=== PATIENT | female | born 1965 | race Hispanic/Latino ===

== ENCOUNTER 2022-10-06 07:54 | Inpatient (IN) | payer BC ==
[~2022-10-06] VITALS: Ht 167.6 cm; Wt 72.6 kg
[2022-10-06] VITALS (11 sets, daily range): BP systolic 80–126; BP diastolic 30–66
[2022-10-06] MEDS ORDERED: HEPARIN 5,000 UNIT VIAL ONE (08:25)
[2022-10-06] MEDS ORDERED: ASPIRIN 300 MG SUPPOSITORY PR ONE (08:30)
[2022-10-06 08:31] LABS: ABG OXYGEN SATURATION 98.8 % (95.0-99.0); BASE EXCESS,VENOUS BLOOD GAS -14.4 (-2.0-3.0); HCO3,VENOUS BLOOD GAS 19.6 (21.0-28.0); PCO2,VENOUS BLOOD GAS 91 (32-45); PH,VENOUS BLOOD GAS < 6.960 (7.350-7.450)
[2022-10-06 08:32] LABS: ABG BASE EXCESS -16.3 mmol/L (-2.0-3.0); ABG HCO3 17.1 mmol/L (21.0-28.0); ABG OXYGEN SATURATION 89.2 % (95.0-99.0); ABG PCO2 84 mmHg (32-45)
[2022-10-06 08:37] LABS: BASOPHILS % (AUTO) 0.9 % (0.0-5.0); HEMATOCRIT 39.6 % (36-48); LYMPHOCYTES % (AUTO) 63.1 % (21.0-51.0); MEAN CORPUSCULAR HGB CONC 30.6 g/dL (32.0-36.0); MONOCYTES % (AUTO) 4.3 % (3.0-13.0); NEUTROPHILS % (AUTO) 23.3 % (40.0-77.0); NUCLEATED RED BLOOD CELLS 0.9 % (0.0-0.19); PLATELET COUNT (AUTO) 81 K/uL (130-400); RED BLOOD CELL COUNT(AUTO) 4.66 MIL/uL (4.00-5.50); WHITE BLOOD COUNT (AUTO) 20.3 K/uL (4.8-10.8)
[2022-10-06] MEDS ORDERED: SODIUM BICARB 50MEQ 50ML VIAL 100 ML ONE ×4 (08:37→10:23)
[2022-10-06 08:41] LABS: POTASSIUM 4.6 mmol/L (3.5-5.1)
[2022-10-06] MEDS ORDERED: NITROGLYCERIN 50MG VIAL ONE (08:43)
[2022-10-06] MEDS ORDERED: BIVALIRUDIN 250 MG/VIAL IV ONE (08:43)
[2022-10-06] MEDS ORDERED: ATROPINE 1MG SYG IVP ONE (08:43)
[2022-10-06] MEDS ORDERED: LIDOCAINE HCL 400MG/20ML VIAL ONE (08:43)
[2022-10-06] MEDS ORDERED: HEPARIN 10,000 UNIT/10ML (1,000 UNIT/ML) VIAL ONE (08:43)
[2022-10-06] MEDS ORDERED: IOHEXOL 350 MG/ML 100ML INFUS..BTL IV ONE (08:44)
[2022-10-06 08:47] LABS: MAGNESIUM 2.5 mg/dL (1.80-2.40); TOTAL PROTEIN, SERUM 4.6 g/dL (6.0-8.3)
[2022-10-06] MEDS ORDERED: NACL 0.9% IV SCH (09:00)
[2022-10-06] MEDS ORDERED: EPINEPHRINE IV SCH (09:00)
[2022-10-06] MEDS ORDERED: FENTANYL CITRATE PF 50 MCG/1 ML 2ML VIAL ONE (09:00)
[2022-10-06] MEDS ORDERED: MIDAZOLAM HCL 1 MG/ML 2ML VIAL ONE (09:00)
[2022-10-06] MEDS ORDERED: NOREPINEPHRINE BITARTRATE 1 MG/1 ML ML IV ONE ×3 (09:03→10:54)
[2022-10-06] MEDS ORDERED: PHENYLEPHRINE HCL 10 MG/ML 1ML VIAL IV ONE ×2 (09:15→09:17)
[2022-10-06 09:27] LABS: ABG BASE EXCESS -21.8 mmol/L (-2.0-3.0); ABG HCO3 12.2 mmol/L (21.0-28.0); ABG OXYGEN SATURATION 92.3 % (95.0-99.0); ABG PCO2 73 mmHg (32-45)
[2022-10-06 09:30] LABS: B-TYPE NATRIURETIC PEPTIDE 31 pg/mL (0-100)
[2022-10-06 09:55] LABS: BAND NEUTROPHILS % (MANUAL) 3 % (0-2); BASOPHILS % (MANUAL) 1 % (0-2); EOSINOPHILS % (MANUAL) 1 % (1-6); LYMPHOCYTES % (MANUAL) 74 % (22-44); MAN.DIFF COMMENT-IMPRESSION MANUAL DIFFERENTIAL; MONOCYTES % (MANUAL) 1 % (2-9); PLATELET MORPHOLOGY COMMENT DECREASED; REACTIVE LYMPHOCYTES 2 % (0-0); SEGMENTED NEUTROPHILS % 18 % (40-70)
[2022-10-06 10:13] LABS: ABG BASE EXCESS -17.5 mmol/L (-2.0-3.0); ABG HCO3 13.9 mmol/L (21.0-28.0); ABG PCO2 59 mmHg (32-45)
[2022-10-06] MEDS ORDERED: INSULIN HUMULIN R 100 UNIT/ML 3ML ONE (10:32)
[2022-10-06] MEDS ORDERED: HEPARIN 25,000 UNITS/250ML D5W 250 ML IV ONE (10:45)
[2022-10-06] MEDS ORDERED: KAYEXALATE 15GM/60ML PO PRN (11:00)
[2022-10-06] MEDS ORDERED: SODIUM BICARB 8.4% 50ML SYRING 150 MEQ in DEXTROSE 5%-WATER 1,000 ML IVP SCH (11:00)
[2022-10-06] MEDS ORDERED: CHLORHEXIDINE GLUCONATE 473 ML MOUTHWASH MM SCH (11:00)
[2022-10-06] MEDS ORDERED: HYDRALAZINE 20MG/ML VIAL IV PRN (11:00)
[2022-10-06] MEDS ORDERED: ACETAMINOPHEN 325 MG TAB PO PRN (11:00)
[2022-10-06] MEDS ORDERED: HEPARIN 25,000 UNITS/250ML D5W 250 ML IV SCH (11:00)
[2022-10-06] MEDS ORDERED: LACTULOSE 20 GM/30 ML UDCUP PO PRN (11:00)
[2022-10-06] MEDS ORDERED: NOREPINEPHRIN 4MG/NS 250ML 250 ML IV SCH (11:00)
[2022-10-06] MEDS ORDERED: INSULIN REGULAR, HUMAN 3ML 100 UNIT in 0.9%NACL 100ML 99 ML IV SCH ×2 (11:00)
[2022-10-06] MEDS ORDERED: LABETALOL 20MG SYG IV PRN (11:00)
[2022-10-06] MEDS ORDERED: ONDANSETRON 4MG INJ IVP PRN ×2 (11:00→14:00)
[2022-10-06] MEDS ORDERED: ARTIFICAL TEARS SOL 15 ML OU SCH (11:00)
[2022-10-06] MEDS ORDERED: FENTANYL 2500MCG+NS 250ML 0 ML IV ONE (11:22)
[2022-10-06] MEDS ORDERED: FENTANYL 2500MCG+NS 250ML IV.SOLN IV SCH (11:30)
[2022-10-06] MEDS ORDERED: VASOPRESSIN 40 UNITS in 0.9%NACL 50ML 40 ML IV SCH (11:30)
[2022-10-06] MEDS ORDERED: [UNRECOGNIZED DRUG - OTHER] IV ONE (11:50)
[2022-10-06 11:57] LABS: ABG BASE EXCESS -15.8 mmol/L (-2.0-3.0); ABG OXYGEN SATURATION 86.6 % (95.0-99.0); ABG PCO2 50 mmHg (32-45)
[2022-10-06] MEDS ORDERED: NOREPINEPHRINE 16MG/NS 250ML 250 ML IV SCH (12:00)
[2022-10-06] MEDS ORDERED: SODIUM CHLORIDE 3% FOR INHALATION 4 ML/AMP VIAL.NEB IH SCH (12:00)
[2022-10-06] MEDS ORDERED: NOREPINEPHRINE 16MG/NS 250ML PREMIX IV SCH (12:00)
[2022-10-06] MEDS ORDERED: SODIUM BICARB 8.4% 50ML SYRING 150 MEQ in 0.9%NACL 1000ML 1,000 ML IVP SCH (12:30)
[2022-10-06] MEDS ORDERED: SODIUM BICARB 8.4% 50ML SYRING 0 MEQ in DEXTROSE 5%-WATER 1,000 ML IVP SCH (12:30)
[2022-10-06] MEDS ORDERED: VASOPRESSIN 20 UNITS in 0.9%NACL 100ML 100 ML IV SCH (12:30)
[2022-10-06 12:32] LABS: HEMATOCRIT 31.3 % (36-48); MEAN CORPUSCULAR HEMOGLOBIN 26.5 pg (27.0-33.0); MEAN CORPUSCULAR HGB CONC 30.7 g/dL (32.0-36.0); MEAN CORPUSCULAR VOLUME 86.5 fL (79-99); NUCLEATED RED BLOOD CELLS 0.2 % (0.0-0.19); PLATELET COUNT (AUTO) 56 K/uL (130-400); RED BLOOD CELL COUNT(AUTO) 3.62 MIL/uL (4.00-5.50); RED CELL DISTRIBUTION WIDTH 13.1 % (11.0-15.5); WHITE BLOOD COUNT (AUTO) 23.1 K/uL (4.8-10.8)
[2022-10-06 12:52] LABS: BAND NEUTROPHILS % (MANUAL) 11 % (0-2); EOSINOPHILS % (MANUAL) 1 % (1-6); LYMPHOCYTES % (MANUAL) 38 % (22-44); MAN.DIFF COMMENT-IMPRESSION MANUAL DIFFERENTIAL; MONOCYTES % (MANUAL) 3 % (2-9); SEGMENTED NEUTROPHILS % 47 % (40-70)
[2022-10-06 12:53] LABS: PLATELET MORPHOLOGY COMMENT DECREASED
[2022-10-06] MEDS ORDERED: AMIODARONE 900MG VIAL 540 MG in DEXTROSE 5%-WATER 300 ML IV SCH (13:00)
[2022-10-06] MEDS ORDERED: AMIODARONE 900MG VIAL 150 MG in DEXTROSE 5%-WATER 100 ML IV SCH (13:00)
[2022-10-06] MEDS ORDERED: AMIODARONE 900MG VIAL 360 MG in DEXTROSE 5%-WATER 200 ML IV SCH (13:00)
[2022-10-06 13:18] LABS: POTASSIUM 3.7 mmol/L (3.5-5.1)
[2022-10-06 13:19] LABS: CREATININE 1.3 mg/dL (0.5-1.5); TOTAL PROTEIN, SERUM 3.7 g/dL (6.0-8.3)
[2022-10-06 13:20] LABS: ALBUMIN 1.4 g/dL (3.5-5.0)
[2022-10-06] MEDS ORDERED: NOREPINEPHRIN 4MG/NS 250ML 250 ML IV ONE (13:27)
[2022-10-06 13:36] LABS: MAGNESIUM 2.6 mg/dL (1.80-2.40); PHOSPHORUS 9.6 mg/dL (2.5-4.9)
[2022-10-06] MEDS ORDERED: NOREPINEPHRINE 16MG/NS 250ML 250 ML IV ONE (13:41)
[2022-10-06] MEDS ORDERED: CALCIUM GLUC 1GM/10ML VIAL ONE (13:46)
[2022-10-06 13:55] LABS: ABG BASE EXCESS 8.9 mmol/L (-2.0-3.0); ABG HCO3 35.2 mmol/L (21.0-28.0); ABG OXYGEN SATURATION 82.5 % (95.0-99.0); ABG PCO2 61 mmHg (32-45)
[2022-10-06] MEDS ORDERED: IPRATROPIUM/ALBUTEROL SULFATE 3 ML SOLUTION IH SCH (14:00)
[2022-10-06] MEDS ORDERED: CEFEPIME HCL 1 GM VIAL IVPB SCH (14:00)
[2022-10-06] MEDS ORDERED: ACETAMINOPHEN 650 MG SUPPOSITORY RC PRN (14:00)
[2022-10-06] MEDS ORDERED: EPINEPHRINE PF 1MG (1:1,000) 1 MG/ML AMP ONE (14:05)
[2022-10-06] MEDS ORDERED: ALBUMIN (HUMAN) 25% 100 ML IV ONE (14:07)
[2022-10-06 14:17] LABS: INR > 8.00 (0.85-1.15); PARTIAL THROMBOPLASTIN TIME > 139.0 SEC (26.3-35.5); PROTHROMBIN TIME > 90.0 SEC (9.6-11.6)
[2022-10-06] MEDS ORDERED: DOPAMINE HCL 400 MG/D5%-WATER 250 ML IV ONE (14:20)
[2022-10-06] MEDS ORDERED: EPINEPHRINE 1MG/10ML(1:10,000) 0.1 MG/ML SYG IVP ONE ×2 (14:20)
[2022-10-06] MEDS ORDERED: SODIUM BICARB 8.4% 50ML SYRINGE IVP ONE ×2 (14:20)
[2022-10-06] MEDS ORDERED: CACL 1GM SYG IVP ONE (14:20)
[2022-10-06] MEDS ORDERED: FAMOTIDINE 20MG VIAL IV SCH (21:00)
== END 2022-10-06 14:21 | DRG 163 ==
LOC: EDH 07:54 → EDHIP 10:00 → 2BH 11:10
PROVIDERS: ADMIT Internal Medicine; ATTEND Internal Medicine
PROC: 02CR3ZZ Extirpation of Matter from Left Pulmonary Artery, Percutaneous Approach (ICD-10-PCS; principal; 2022-10-06)
PROC: 4A023N8 Measurement of Cardiac Sampling and Pressure, Bilateral, Percutaneous Approach (ICD-10-PCS; 2022-10-06)
PROC: B2111ZZ Fluoroscopy of Multiple Coronary Arteries using Low Osmolar Contrast (ICD-10-PCS; 2022-10-06)
PROC: B31T1ZZ Fluoroscopy of Left Pulmonary Artery using Low Osmolar Contrast (ICD-10-PCS; 2022-10-06)
PROC: B31S1ZZ Fluoroscopy of Right Pulmonary Artery using Low Osmolar Contrast (ICD-10-PCS; 2022-10-06)
PROC: 3E05317 Introduction of Other Thrombolytic into Peripheral Artery, Percutaneous Approach (ICD-10-PCS; 2022-10-06)
PROC: 5A12012 Performance of Cardiac Output, Single, Manual (ICD-10-PCS; 2022-10-06)
PROC: 0BH17EZ Insertion of Endotracheal Airway into Trachea, Via Natural or Artificial Opening (ICD-10-PCS; 2022-10-06)
PROC: 5A1935Z Respiratory Ventilation, Less than 24 Consecutive Hours (ICD-10-PCS; 2022-10-06)
DX: I26.99 Other pulmonary embolism without acute cor pulmonale (principal); E11.10 Type 2 diabetes mellitus with ketoacidosis without coma; G93.41 Metabolic encephalopathy; J96.01 Acute respiratory failure with hypoxia; E87.1 Hypo-osmolality and hyponatremia; E87.4 Mixed disorder of acid-base balance; I24.9 Acute ischemic heart disease, unspecified; E87.0 Hyperosmolality and hypernatremia; I48.92 Unspecified atrial flutter; I10 Essential (primary) hypertension; I44.0 Atrioventricular block, first degree; I44.7 Left bundle-branch block, unspecified; I46.9 Cardiac arrest, cause unspecified; E83.42 Hypomagnesemia; E78.00 Pure hypercholesterolemia, unspecified; E66.01 Morbid (severe) obesity due to excess calories; D72.829 Elevated white blood cell count, unspecified; D69.6 Thrombocytopenia, unspecified; R57.8 Other shock; Z82.49 Family history of ischemic heart disease and other diseases of the circulatory system; Z83.3 Family history of diabetes mellitus; Z91.199 Patient's noncompliance with other medical treatment and regimen due to unspecified reason; Z90.49 Acquired absence of other specified parts of digestive tract; Z68.25 Body mass index [BMI] 25.0-25.9, adult
CPT/HCPCS: 31500; 35875; 36415; 36600; 37212; 71045; 75743; 80053; 82010; 82435; 82550; 82803; 82947; 83605; 83735; 83880; 84100; 84132; 84295; 84484; 85018; 85025; 85347; 85610; 85730; 92950; 93005; 93308; 93454; 93573; 94002; 99156; 99157; C1757; C1769; C1894; G0378; J0171; J0282; J0461; J0583; J0610; J1265; J1644; J1815; J2250; J2370; J3010; J3490; J7050; J7060; J7070; P9046; Q9967